=== PATIENT | female | born 1995 | race Caucasian/White ===

== ENCOUNTER 2018-11-13 22:15 | Emergency (ER) | payer OTHER, BC | END 2018-11-14 02:29 | disposition home or self-care (01) | LOC: JERFT 11-14 02:29 | PROC: 3E0333Z Introduction of Anti-inflammatory into Peripheral Vein, Percutaneous Approach (ICD-10-PCS; principal; 2018-11-13) | PROC: 3E0333Z Introduction of Anti-inflammatory into Peripheral Vein, Percutaneous Approach (ICD-10-PCS; 2018-11-13) | PROC: 3E033GC Introduction of Other Therapeutic Substance into Peripheral Vein, Percutaneous Approach (ICD-10-PCS; 2018-11-13) | PROC: 3E0337Z Introduction of Electrolytic and Water Balance Substance into Peripheral Vein, Percutaneous Approach (ICD-10-PCS; 2018-11-13) | DX: J32.9 Chronic sinusitis, unspecified (principal) ==